=== PATIENT | female | born 1985 | race Caucasian/White ===

== ENCOUNTER 2017-12-26 16:19 | Emergency (ER) | payer OTHER ==
[~2017-12-26] VITALS: Ht 157.5 cm; Wt 76.0 kg
[2017-12-26 16:31] VITALS: TEMP 37.1; Ht 157.5 cm; Wt 76.0 kg
[2017-12-26] MEDS ORDERED: SODIUM CHLORIDE 0.9% 1000ML 1,000 ML IV STA (16:42)
[2017-12-26] MEDS ORDERED: KETOROLAC TROMETHAMINE 30 MG/ML VIAL IV STA (16:42)
[2017-12-26] MEDS ORDERED: ONDANSETRON INJ 2 MG/ML 2 ML VIAL IV STA (16:42)
--- NOTE | 2017-12-26 17:12 | DIAGNOSTIC IMAGING REPORT ---
CHEST ONE VIEW PORTABLE CLINICAL HISTORY: Abdominal pain. COMPARISON STUDY: No previous studies for comparison. FINDINGS: Lung volumes are mildly diminished. Prominent gas-filled loops of bowel within the left upper quadrant are noted. There is no pneumothorax or pleural effusion. There is no consolidation or evidence for pulmonary edema. Cardiomediastinal silhouette is normal. IMPRESSION: 1. No acute cardiopulmonary findings. 2. Prominent gas-filled loops of bowel within the left upper quadrant, a nonspecific finding. Electronically signed by: Robert Christensen M.D. 12/26/2017 5:11 PM Dictated Date/Time: 12/26/2017 5:10 PM
[2017-12-26 17:22] LABS: BASO % 0.3 %; BASO ABS # 0.02 K/uL (0-0.2); EOS % 0.8 %; EOS ABS # 0.05 K/uL (0-0.5); HEMATOCRIT 40.7 % (37-47); HEMOGLOBIN 13.5 g/dL (12.0-16.0); IG# 0.01 K/uL (0.00-0.02); LYMPH % 31.5 %; LYMPH ABS # 1.98 K/uL (1.2-3.4); MEAN CELL VOLUME 97.6 fL (80-100); MEAN CORPUSCULAR HEMOGLOBIN 32.4 pg (25-34); MEAN CORPUSCULAR HGB CONC 33.2 g/dl (32-36); MEAN PLATELET VOLUME 9.2 fL (7.4-10.4); MONO % 8.1 %; MONO ABS # 0.51 K/uL (0.11-0.59); NEUT % 59.1 %; NEUT ABS # 3.72 K/uL (1.4-6.5); PLATELET COUNT 258 K/uL (130-400); RED CELL DISTRIBUTION WIDTH SD 50.1 fL (36.4-46.3); WHITE BLOOD COUNT 6.29 K/uL (4.8-10.8)
[2017-12-26 17:32] LABS: PTT PATIENT 23.8 SECONDS (21.0-31.0)
[2017-12-26 17:49] LABS: ALBUMIN 3.8 gm/dl (3.4-5.0); ALKALINE PHOSPHATASE 68 U/L (45-117); ALT/SGPT 259 U/L (12-78); AST/SGOT 88 U/L (15-37); BLOOD UREA NITROGEN 9 mg/dl (7-18); CALCIUM 8.9 mg/dl (8.5-10.1); CARBON DIOXIDE 29 mmol/L (21-32); CREATININE 0.73 mg/dl (0.60-1.20); GLUCOSE 90 mg/dl (70-99); LIPASE 635 U/L (73-393); POTASSIUM 3.9 mmol/L (3.5-5.1); SODIUM 140 mmol/L (136-145); TOTAL PROTEIN 7.9 gm/dl (6.4-8.2)
--- NOTE | 2017-12-26 17:56 | DIAGNOSTIC IMAGING REPORT ---
GALLBLADDER-ABD LIMITED CLINICAL HISTORY: ABDOMINAL PAIN/GI nausea TECHNIQUE: Ultrasound COMPARISON STUDY: None FINDINGS: Several small gallbladder polyps. Partial calcification gallbladder wall. No shadowing gallstones. Common bile duct 3 mm. Fatty infiltration of liver. Pancreas and right kidney are unremarkable. IMPRESSION: Several small gallbladder polyps combined with a slight or partial calcification the gallbladder wall. Normal caliber bile ducts. Otherwise negative study. The above report was generated using voice recognition software. It may contain grammatical, syntax or spelling errors. Electronically signed by: Magdy Brown M.D. 12/26/2017 5:54 PM Dictated Date/Time: 12/26/2017 5:53 PM
--- NOTE | 2017-12-26 18:08 | EMERGENCY ROOM VISIT NOTE ---
History Report prepared by Jose M: Marino Arteaga Under the Supervision of: Dr. Doc Gutierrez D.O. First contact with patient: 16:34 Chief Complaint: ABDOMINAL PAIN History of Present Illness The patient is a 32 year old female who presents to the Emergency Room with complaints of constant abdominal pain beginning about two weeks ago. She rates her pain at a 7/10 in severity. The patient reports that she began experiencing her symptoms when in detention, and states that she had blood work done yesterday. The patient notes that she was seen by a hospitalist at [facility] in the past with pancreatitis, and states that the cause was never determined. She states that she has been feeling nauseous and started to have diarrhea 4 days ago. The patient notes a history of hepatitis C. She denies a history of gallstones or other issues with her gallbladder. Source of History: patient Onset: about 2 weeks ago Position: abdomen Symptom Intensity: 7/10 Timing: constant Associated Symptoms: + nausea, + diarrhea (past 4 days) Review of Systems See HPI for pertinent positives & negatives. A total of 10 systems reviewed and were otherwise negative. Past Medical & Surgical Medical Problems: (1) Hepatitis C (2) Pancreatitis Family History Patient reports no known family medical history. Social History Smoking Status: Former Smoker Physical Exam Vital Signs Date Time Temp Pulse Resp B/P (MAP) Pulse Ox O2 Delivery O2 Flow Rate FiO2 18 16:31 37.1 102 20 139/95 98 Room Air Physical Exam CONSTITUTIONAL/VITAL SIGNS: Reviewed / noted above. GENERAL: Non-toxic in appearance. INTEGUMENTARY: Warm, dry, and [place]. HEAD: Normocephalic. EYES: without scleral icterus or trauma. ENT/OROPHARYNX: clear and moist. LYMPHADENOPATHY/NECK: Is supple without lymphadenopathy or meningismus. RESPIRATORY: Lungs clear and equal. CARDIOVASCULAR: Regular rate and rhythm. GI/ABDOMEN: Soft and tender in the epigastric area and right upper quadrant. No organomegaly or pulsatile mass. No rebound or guarding. Normal bowel sounds. EXTREMITIES: Warm and well perfused. BACK: No CVA tenderness. NEUROLOGICAL: Intact without focal deficits. PSYCHIATRIC: normal affect. MUSCULOSKELETAL: Normally developed with good muscle tone. Medical Decision & Procedures ER Provider Diagnostic Interpretation: Radiology results as stated below per my review and radiologist interpretation: CHEST ONE VIEW PORTABLE CLINICAL HISTORY: Abdominal pain. COMPARISON STUDY: No previous studies for comparison. FINDINGS: Lung volumes are mildly diminished. Prominent gas-filled loops of bowel within the left upper quadrant are noted. There is no pneumothorax or pleural effusion. There is no consolidation or evidence for pulmonary edema. Cardiomediastinal silhouette is normal. IMPRESSION: 1. No acute cardiopulmonary findings. 2. Prominent gas-filled loops of bowel within the left upper quadrant, a nonspecific finding. Electronically signed by: Robert Christensen M.D. 12/26/2017 5:11 PM Dictated Date/Time: 12/26/2017 5:10 PM GALLBLADDER-ABD LIMITED CLINICAL HISTORY: ABDOMINAL PAIN/GI nausea TECHNIQUE: Ultrasound COMPARISON STUDY: None FINDINGS: Several small gallbladder polyps. Partial calcification gallbladder wall. No shadowing gallstones. Common bile duct 3 mm. Fatty infiltration of liver. Pancreas and right kidney are unremarkable. IMPRESSION: Several small gallbladder polyps combined with a slight or partial calcification the gallbladder wall. Normal caliber bile ducts. Otherwise negative study. The above report was generated using voice recognition software. It may contain grammatical, syntax or spelling errors. Electronically signed by: Magdy Brown M.D. 12/26/2017 5:54 PM Laboratory Results 12/26/17 17:10 Red Blood Count 4.17, Mean Corpuscular Volume 97.6, Mean Corpuscular Hemoglobin 32.4, Mean Corpuscular Hemoglobin Concent 33.2, Mean Platelet Volume 9.2, Neutrophils (%) (Auto) 59.1, Lymphocytes (%) (Auto) 31.5, Monocytes (%) (Auto) 8.1, Eosinophils (%) (Auto) 0.8, Basophils (%) (Auto) 0.3, Neutrophils # (Auto) 3.72, Lymphocytes # (Auto) 1.98, Monocytes # (Auto) 0.51, Eosinophils # (Auto) 0.05, Basophils # (Auto) 0.02 12/26/17 17:10 Test 12/26/17 17:10 White Blood Count 6.29 K/uL (4.8-10.8) Red Blood Count 4.17 M/uL (4.2-5.4) Hemoglobin 13.5 g/dL (12.0-16.0) Hematocrit 40.7 % (37-47) Mean Corpuscular Volume 97.6 fL (80-100) Mean Corpuscular Hemoglobin 32.4 pg (25-34) Mean Corpuscular Hemoglobin Concent 33.2 g/dl (32-36) Platelet Count 258 K/uL (130-400) Mean Platelet Volume 9.2 fL (7.4-10.4) Neutrophils (%) (Auto) 59.1 % Lymphocytes (%) (Auto) 31.5 % Monocytes (%) (Auto) 8.1 % Eosinophils (%) (Auto) 0.8 % Basophils (%) (Auto) 0.3 % Neutrophils # (Auto) 3.72 K/uL (1.4-6.5) Lymphocytes # (Auto) 1.98 K/uL (1.2-3.4) Monocytes # (Auto) 0.51 K/uL (0.11-0.59) Eosinophils # (Auto) 0.05 K/uL (0-0.5) Basophils # (Auto) 0.02 K/uL (0-0.2) RDW Standard Deviation 50.1 fL (36.4-46.3) RDW Coefficient of Variation 14.0 % (11.5-14.5) Immature Granulocyte % (Auto) 0.2 % Immature Granulocyte # (Auto) 0.01 K/uL (0.00-0.02) Prothrombin Time 10.5 SECONDS (9.0-12.0) Prothromb Time International Ratio 1.0 (0.9-1.1) Activated Partial Thromboplast Time 23.8 SECONDS (21.0-31.0) Partial Thromboplastin Ratio 0.9 Anion Gap 4.0 mmol/L (3-11) Est Creatinine Clear Calc Drug Dose 105.6 ml/min Estimated GFR () 126.3 Estimated GFR (Non- 109.0 BUN/Creatinine Ratio 12.0 (10-20) Calcium Level 8.9 mg/dl (8.5-10.1) Total Bilirubin 0.4 mg/dl (0.2-1) Direct Bilirubin < 0.1 mg/dl (0-0.2) Aspartate Amino Transf (AST/SGOT) 88 U/L (15-37) Alanine Aminotransferase (ALT/SGPT) 259 U/L (12-78) Alkaline Phosphatase 68 U/L (45-117) Total Protein 7.9 gm/dl (6.4-8.2) Albumin 3.8 gm/dl (3.4-5.0) Lipase 635 U/L (73-393) Laboratory results as stated above per my review. Medications Administered Medications (Trade) Dose Ordered Sig/Jay Route Start Time Stop Time Status Last Admin Dose Admin Sodium Chloride 1,000 ml @ 999 mls/hr Q1H1M STAT IV 12/26/17 16:42 12/26/17 17:42 DC 12/26/17 17:17 999 MLS/HR Ondansetron HCl (Zofran Inj) 4 mg NOW STAT IV 12/26/17 16:42 12/26/17 16:44 DC 12/26/17 17:17 4 MG Ketorolac Tromethamine (Toradol Inj) 30 mg NOW STAT IV 12/26/17 16:42 12/26/17 16:44 DC 12/26/17 17:17 30 MG ED Course 1639: Previous medical records were reviewed. The patient's vitals are normal upon reporting to the ER. The patient was evaluated in room C3. A complete history and physical examination was performed. 1642: Ordered Toradol 30 mg IV, Zofran 4 mg IV, Sodium Chloride 1000 ml @ 999 mls/hr 1809: On reevaluation, the patient is resting. I discussed the results and findings with the patient. She verbalized agreement of the treatment plan. The patient is ready for discharge. Medical Decision Differential considered: pancreatitis, hepatitis, or acute cholecystitis, AAA, UTI, pyelonephritis, kidney stones, appendicitis, diverticulitis, shingles, bowel obstruction mesenteric ischemia, intussusception,hernia, testicular torsion, ovarian torsion, ruptured ovarian cyst,ectopic , . This is a 32-year-old female who presents to the ED with a chief complaint of abdominal pain. The patient was placed in detention 2 weeks ago. She asked that her blood work be checked for pancreatitis that she has had this in the past. She states that her enzymes are elevated. She came in here for further evaluation. The patient's physical exam reveals some mild tenderness to the epigastric area. Her exam was otherwise unremarkable. Her vital signs. There are CBC and complete metabolic panel were normal with exception of an AST of 88 and an ALT of 259. She does report a history of hepatitis C. Lipase was mildly elevated at 635. This is not conclusive of pancreatitis. A gallbladder ultrasound reveals several small gallbladder polyps and a slightly calcified gallbladder wall otherwise no acute findings. Chest x-ray was negative for acute intrapulmonary process. The patient was told the results of the test. She was felt to be stable for discharge and outpatient follow-up. The patient was treated here with IV Toradol, IV fluids and IV Zofran. Medication Reconcilliation Current Medication List: was personally reviewed by me Blood Pressure Screening Patient's blood pressure: Normal blood pressure Blood pressure disposition: Did not require urgent referral Impression Primary Impression: Abdominal pain Additional Impressions: Transaminitis Hepatitis C Elevated lipase Scribe Attestation The scribe's documentation has been prepared under my direction and personally reviewed by me in its entirety. I confirm that the note above accurately reflects all work, treatment, procedures, and medical decision making performed by me. Departure Information Dispostion Home / Self-Care Referrals No Doctor, Assigned (PCP) Forms Call Back Authorization, HOME CARE DOCUMENTATION FORM, IMPORTANT VISIT INFORMATION Patient Instructions My [facility] Additional Instructions At this time, your lipase level is not conclusive for pancreatitis. Early pancreatitis could be possible although is felt to be less likely since the symptoms have been present for 2 weeks. If your symptoms worsen, rechecking lipase level would be prudent. Your liver function tests are elevated consistent with your history of hepatitis C Follow-up with your doctor for further care and evaluation in 1-7 days. Return to the emergency department for worsening or new symptoms or any concerns. You have been examined and treated today on an emergency basis only. This is not a substitute for, or an effort to provide, complete comprehensive medical care. It is impossible to recognize and treat all injuries or illnesses in a single emergency department visit. It is therefore important that you follow up closely with your doctor. Call as soon as possible for an appointment. Problem Qualifiers
[2017-12-26 18:19] VITALS: BP 117/73; PULSE 81; O2SAT 100
== END 2017-12-26 18:20 | disposition home or self-care (01) ==
LOC: C.EDB 16:21 → C.EDC 18:20
DX: R10.13 Epigastric pain (principal); R10.11 Right upper quadrant pain; B19.20 Unspecified viral hepatitis C without hepatic coma; R74.8 Abnormal levels of other serum enzymes; R74.0 Nonspecific elevation of levels of transaminase and lactic acid dehydrogenase [LDH]; R11.0 Nausea; R19.7 Diarrhea, unspecified; Z87.891 Personal history of nicotine dependence